=== PATIENT | male | born 1975 | race African-American/Black ===

== ENCOUNTER 2018-11-08 06:32 | Emergency (ER) | payer OTHER ==
[~2018-11-08] VITALS: Ht 182.9 cm; Wt 77.0 kg
[~2018-11-08 06:32] MED LIST: DILANTIN
[2018-11-08] MEDS ORDERED: SODIUM CHLORIDE 0.9% 1,000 ML IV ONE (06:56)
[2018-11-08 07:21] VITALS: BP 115/76
== END 2018-11-08 08:37 | disposition left against medical advice (07) ==
LOC: ER 06:32
DX: R56.9 Unspecified convulsions (principal); R32 Unspecified urinary incontinence
CPT/HCPCS: 99283; J7030; Z7610

== ENCOUNTER 2019-05-11 07:53 | Emergency (ER) | payer OTHER ==
[~2019-05-11] VITALS: Ht 175.3 cm; Wt 70.0 kg
[2019-05-11] MEDS ORDERED: KETOROLAC 60MG/2ML VIAL IM ONE (08:15)
[2019-05-11] MEDS ORDERED: HYDROCODONE/ACETAMINOPHEN 5/325MG TABLET PO ONE (08:45)
[2019-05-11 08:56] VITALS: BP 124/88
== END 2019-05-11 08:58 | disposition home or self-care (01) ==
LOC: ER 07:53
DX: M25.511 Pain in right shoulder (principal); R03.0 Elevated blood-pressure reading, without diagnosis of hypertension; F17.210 Nicotine dependence, cigarettes, uncomplicated; Z71.6 Tobacco abuse counseling; F12.90 Cannabis use, unspecified, uncomplicated; G40.909 Epilepsy, unspecified, not intractable, without status epilepticus
CPT/HCPCS: 73030; 99283; 99406; J1885